=== PATIENT | male | born 1940 | race Caucasian/White ===

== ENCOUNTER → 2017-03-12 | Outpatient (CLI) | payer MEDICARE, BC ==
[~2017-03-12] MED LIST: TOPROL XL
--- NOTE | ~2017-03-12 | TH ---
Unit #: [id number] #: [id number] Patient: RADHA LOVELL [id number] [address] [address] [id number] MR#: [id number] NAME: RADHA LOVELL : 1940 SEX: M STUDY DATE/TIME: 03/12/2017 UNIT: [facility] ROOM: STUDY DESCRIPTION: Attending Physician: Refugio Alford M.D. Referring Physician: Refugio Alford M.D. Primary Care Physician: Ghassan Bradley M.D. CARDIOLOGY REPORT EXAM Stress nuclear and ECG combined. INDICATION Shortness of breath and tightness in the chest with mowing, fatigue with activity, recent discontinuation of cholesterol medication, and positive family history of coronary artery disease. SUMMARY The patient exercised on a Kyrie protocol to maximal effort for 9 minutes. Patient was given technetium 99 Cardiolite 11.97 and 33.6 mCi at rest and stress, respectively. Appropriate views were obtained. FINDINGS The resting ECG was normal. With stress, there were single PVCs. There were no diagnostic ST shifts. Heart rate increased from 57 to 123 (86%), and blood pressure increased from 156/92 to 192/86. Patient did not develop any chest pain or tightness. Perfusion images demonstrate apical thinning with no significant perfusion defects. Summed stress score is 1 and summed difference score is 1. Planar images demonstrate normal images with no increased lung uptake, LV or RV enlargement, and no significant patient motion noted. Gated perfusion wall motion analysis demonstrates end-diastolic volume 110 mL and ejection fraction 58%. IMPRESSION 1. Stress nuclear study shows no ischemia or infarction. 2. Normal wall motion with excellent ejection fraction. 3. Upper normal left ventricle size. 4. Good exercise tolerance. 5. Normal blood pressure response but resting hypertension which is significant. 6. Low-normal heart rate response. 1. Dictated by... Ronnie Snell M.D. Surekha TD: 03/12/2017 16:42 Unit #: [id number] #: [id number] Patient: RADHA LOVELL JOB #: [id number] CARDIOLOGY REPORT Page 1 of 1 X Ronnie Snell MD CARDIOLOGY REPORT
== END | disposition home or self-care (01) ==
LOC: CECH 08:09
DX: R07.89 Other chest pain (principal); I10 Essential (primary) hypertension; I34.0 Nonrheumatic mitral (valve) insufficiency; I36.1 Nonrheumatic tricuspid (valve) insufficiency; I51.89 Other ill-defined heart diseases
CPT/HCPCS: 78452; 93017; 93306; A9500